=== PATIENT | female | born 1960 | race Caucasian/White ===

== ENCOUNTER 2020-04-30 09:03 | Day surgery (SDC) | payer OTHER, SELFPAY ==
[~2020-04-30] VITALS: Ht 160 cm; Wt 104.3 kg
[2020-04-30] MEDS ORDERED: BUPIVACAINE /PF 0.25% 30 ML VIAL INJ ONE (09:04)
[2020-04-30] MEDS ORDERED: IOPAMIDOL 50 ML VIAL IV ONE (09:04)
[2020-04-30] MEDS ORDERED: NS 50 ML BAG IV ONE (09:04)
[2020-04-30] MEDS ORDERED: LIDOCAINE 2%, 20 ML MDV INJ ONE (09:04)
[2020-04-30] MEDS ORDERED: methylPREDNISolone ACETATE 80 MG/ML IM ONE (09:04)
[2020-04-30] MEDS ORDERED: MIDAZOLAM HCL 5 MG/5 ML VIAL ONE (09:27)
[2020-04-30] MEDS ORDERED: DIPHENHYDRAMINE INJ 50 MG/ML VIAL ONE (09:28)
[2020-04-30 11:20] VITALS: BP_SYST 154
== END 2020-04-30 12:20 | disposition home or self-care (01) ==
LOC: SDS 09:03 → SMU 09:16 → SDS 12:20
PROVIDERS: ATTEND Internal Medicine
DX: M53.3 Sacrococcygeal disorders, not elsewhere classified (principal); Z11.59 Encounter for screening for other viral diseases
CPT/HCPCS: 27096; J1040; J1200; J2001; J2250; J3490; J7120; Q9967; U0003; 76000